=== PATIENT | female | born 1945 | race Caucasian/White ===

== ENCOUNTER 2019-04-30 04:01 | Inpatient (IN) | payer OTHER ==
[~2019-04-30] VITALS: Ht 152.4 cm; Wt 95.3 kg
[2019-04-30] MEDS ORDERED: VITAMIN C WITH500 MG PO (04:08)
[2019-04-30] MEDS ORDERED: BUSPIRONE HCL10 MG PO (04:09)
[2019-04-30] MEDS ORDERED: CALCIUM CITRAT1 EA20 PO (04:11)
[2019-04-30] MEDS ORDERED: DEPAKOTE SPRIN125 MG PO (04:12)
[2019-04-30] MEDS ORDERED: CARDIZEM SR 60M60 MG PO (04:14)
[2019-04-30] MEDS ORDERED: ARICEPT10 M1 PO (04:15)
[2019-04-30] MEDS ORDERED: ACID CONTROLLER20 MG PO (04:17)
[2019-04-30] MEDS ORDERED: FLONASE 0.05%50 MCG NARES (04:18)
[2019-04-30] MEDS ORDERED: FOSAMAX 70 MG T70 MG PO (04:19)
[2019-04-30] MEDS ORDERED: FUROSEMIDE 20 M20 MG PO (04:21)
[2019-04-30] MEDS ORDERED: GLYCOLAX119 GM PO (04:22)
[2019-04-30] MEDS ORDERED: IMODIUM A-D2 MG PO (04:26)
[2019-04-30] MEDS ORDERED: LEVO-T75 MCG PO (04:27)
[2019-04-30] MEDS ORDERED: MYRBETRIQ25 MG PO (04:30)
[2019-04-30] MEDS ORDERED: MONTELUKAST SODI4 M1 PO (04:31)
[2019-04-30] MEDS ORDERED: MULTIPLE VITAM1 EAC2 PO (04:32)
[2019-04-30] MEDS ORDERED: NYSTATIN 100,0015 G1 TP (04:35)
[2019-04-30] MEDS ORDERED: POTASSIUM99 M1 PO (04:37)
[2019-04-30] MEDS ORDERED: NOLVADEX20 MG PO (04:38)
[2019-04-30] MEDS ORDERED: RESTORIL15 M1 PO (04:39)
[2019-04-30] MEDS ORDERED: TOPROL XL25 MG PO (04:40)
[2019-04-30] MEDS ORDERED: TRAZODONE 150150 M1 PO (04:41)
[2019-04-30] MEDS ORDERED: TUBERCULIN INTRADERM (04:44)
[2019-04-30] MEDS ORDERED: ACETAMINOPHEN325 M1 PO (04:46)
[2019-04-30] MEDS ORDERED: DELTA D310 MCG PO (04:49)
[2019-04-30 05:49] VITALS: BP 115/70
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
[2019-04-30 08:25] VITALS: BP 155/82
[2019-04-30 12:38] VITALS: BP 110/82
--- NOTE | 2019-04-30 13:49 | NUR ---
Lying supine in bed without s/o distress. Alert and orientated to name and place but not to time. Frequently asking why she is here. Cooperative with assessment and meds. Wants name bracelet off, continually trying to chew/pull it off. Denies SI/HI. Uses walker with regular gait. Loud and demanding at times and uses profanity, tells staff to shut up but is quiet most of the time. Sits at table in day room. Breath sounds clear t/o, bilaterally equal. Color pink with brisk capillary refill and palpable peripheral pulses. +2-3 edema in lower extremities, +1 in hands. BP repeated d/t htn. Reg HR auscultated. Incontinent of yellow urine. Active bowel sounds over soft, rounded abdomen. Reddened/evans area under R breast, no excoriation. Participating in group at this time without s/o distress.
[2019-04-30 20:09] VITALS: BP 115/82
--- NOTE | 2019-04-30 23:31 | NUR ---
Pt. refused all medications that were scheduled for 2100 stating that she doesn't take any of those drugs. 2 separate attempts were made and patient refused x 2.
[2019-05-01 00:49] VITALS: BP 115/82
[2019-05-01 08:48] VITALS: BP 161/65
--- NOTE | 2019-05-01 12:31 | NUR ---
PT VERY ANGRY, AGITATED, LOUD, DEMANDING AND USING ALOT OF RACIAL SLURS. PT REFUSED SOME OF HER MORNING MEDICATIONS, AWARE. PT IS UP AND OUT AROUND THE UNIT, BUT NOT ACTING APPROPRIATE AT TIMES. PT TOLERATES MEALS. UP AROUND WITH WALKER.
[2019-05-01 18:03] VITALS: BP 161/74
[2019-05-01 20:00] VITALS: BP 116/57
--- NOTE | 2019-05-02 05:18 | NUR ---
ASSUME CARE OF PT AT 1900HRS. ASSESSMENTS CHARTED. FALL PRECAUTION IN PLACE. PT ABMULATES WITH A WALKER. PT IS INCT. PT REFUSES TO HAVE WRIST BANDS ON AND WRIST BANDS. NEW ID WRIST BAND APPLIED ON THE WALKER. PT REFUSED MOST NIGHT TIME MEDICATIONS. PT CAN BE BELLIGERENT. PT WAS UNHAPPY ABOUT NOT GETTING TRAZADONE AT HS. VSS AND NO S/S OF ACUTE DISTRESS. WILL CONTINUE TO MONITOR.
--- NOTE | 2019-05-02 08:50 | NUR ---
Sw complete chart review and pt lives at [facility] and has a guardian. Pt was beligerent over the weekend and has little insight into her behaviors.
[2019-05-02 11:48] VITALS: BP 140/72
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
--- NOTE | 2019-05-02 14:14 | NUR ---
1410 RESUMMED CARE FROM OVERNIGHT SHIFT THIS AM, PATIENT SITTING IN DAY ROOM COMPLAINING ABOUT NOT BEING ABLE TO WATCH THE NEWS. WE TOOK A VOTE FROM OTHER PATIENTS AND THEY DID NOT WANT TO WATCH THE NEWS. PATIENTS BOWEL SOUNDS PRESENT ABDOMEN SOFT AND ROUND LUNGS CLEAR. PATIENT HAS BEEN VERY DEMANDING TALKING BAD TO STAFF AND OTHER PATIENTS. I TOLD THE PATIENT IF SHE WANTS TO BE RESPECTED AND GET HER NEEDS MET SHE NEEDS TO BE A LITTLE NICER TO THE PAEOPLE WHO ARE TAKING CARE OF YOU. I SUGGESTED IF SHE IS UPSET BECAUSE CERTAIN TV SHOWS ARE NOT ON TO GO TO HER ROOM AND REST. I PUT THE PATIENT IN THE RECLINER DUE TO 4+ EDEMA IN FEET. PATIENT DENIES SI/HI/AH/VH AT PRESENT WILL CONTINUE TO MONITOR PATIENT FOR SAFETY AND BEHAVIORS.
[2019-05-02 16:37] LABS: ABSOLUTE NEUTROPHILS 2.5 thou/uL (1.4-8.2); BASOPHILS 1.3 % (0.0-2.0); EOSINOPHILS 2.8 % (0.0-3.0); HEMATOCRIT 24.2 % (37.0-47.0); HEMOGLOBIN 7.4 gm/dL (12.0-15.0); LYMPHOCYTES 34.9 % (24.0-44.0); MCH 22.9 pg (26.0-34.0); MCHC 30.6 g/dL (28.0-37.0); MCV 74.9 fL (80.0-100.0); MONOCYTES 10.1 % (1.0-8.0); PLATELET COUNT 383 thou/uL (150-400); POLYS 50.9 % (36.0-66.0); RBC 3.23 mil/uL (4.20-5.00); RDW 18.6 % (10.5-14.5); WBC 4.9 thou/uL (4.0-11.0)
[2019-05-02 17:00] LABS: ALBUMIN 3.1 g/dL (3.4-5.0); CALCIUM 8.6 mg/dL (8.5-10.1); CREATININE 0.8 mg/dL (0.6-1.0); POTASSIUM 4.1 mmol/L (3.5-5.1); TOTAL BILIRUBIN 0.1 mg/dL (<0.1-1.0); TOTAL PROTEIN 6.7 g/dL (6.4-8.2)
--- NOTE | 2019-05-02 17:29 | NUR ---
SW spoke with pt who said that she does not want to go back to [facility]; she insteads wants to reside at a facility that his close to her son Yuval. SW explained that decision has to be made by the P.A. guardian office. Pt did not understand what that meant, so SW explained her guardianship status. Pt also wants SW to ask the facility about her $50 monthly stipend and her iphone. SW team will continue to follow pt during her stay on this unit.
[2019-05-02 17:54] LABS: ANISOCYTOSIS 1+; HYPOCHROMASIA 1+
[2019-05-02 19:30] VITALS: BP 115/51
[2019-05-02 21:21] VITALS: BP 115/51
--- NOTE | 2019-05-02 21:48 | NUR ---
2134 RESUMMMED CARE FROM DAY SHIFT, PATIENT HAD AN EPISODE OF INCONTINENCE IN DAY ROOM. I TOOK PATIENT TO ROOM AND WASHED HER PRIVATE AND BUTTOCKS AREA, I TOLD PATIENT TO ASK FOR A BATH IN THE MORNING. PATIENTS AFFECT IS IRRITABLE SHE COMPLAINS ABOUT EVERYTHING AND STATES SHE HATES THIS PLACE. PATIENT ABDOMEN SOFT ROUND BOWEL SOUNDS PRESENT. PATIENT HAS 4+ EDEMA IN BOTH FEET AND LEGS ARE SWOLLEN. PATIENT IS UPSET ABOUT THE [facility] STATING THEY TAKE HER MONEY AND ONLY GAVE HER 2 SHOWERS SINCE SHE HAS BEEN WITH THEM. PATIENT DENIES SI/HI/AH/VH AT PRESENT. WILL CONTINUE TO MONITOR PATIENT FOR SAFETY AND BEHAVIORS.
--- NOTE | 2019-05-03 10:30 | NUR ---
Not participating in AM Group, dozing at intervals. Asking same questions over and over. Asks why she is here and if we have available the Temazepam and Trazodone. Wants her son to take her out of here to another facility.Declined to take AM Divalproex stating, "I am not Bipolar." Nothing about being Bipolar was mentioned to this patient. She was frequently asked if she needed to use the restroom and she declined. Mood irritable and affect constricted. She said she had a BM early this AM, though not seen by this nurse. Prior to going to breakfast she was given a sponge bath as her bed was saturated with urine. bed sanitized and clean linens applied.
--- NOTE | 2019-05-03 10:57 | NUR ---
SW received a call from Seema, pt's P.A. guardian, who asked for an update. SW provided that update and also explained to her pt does not want to return to [facility]. Seema told SW that while they will not abandon her, [facility] is also looking for placement for SW. She said she understands that pt may discharge before placement for her is found. She said that beginning Thursday she will be on vacation for a week. She gave her cell number of [phone], and said that during her absence hospital staff can contact [phone] which is the main number to the P.A. office. SW team will continue to follow pt during her stay on this unit.
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
[2019-05-03 20:35] VITALS: BP 130/80
--- NOTE | 2019-05-03 23:12 | NUR ---
PT SITTING IN DAY ROOM WATCHING TV AND PEER AND STAFF INTERACTIONS. BLUNTED AFFECT, [facility] CONTACT. WHEN PT TALKED WITH NURSE STATEMENTS WERE SHARP TONED AND DEMANDING. PT BLE EDEMA +4,HX LYMPHEDEMA. PT REPORTED RASH UNDER L BREAST AND WHILE IN DAY ROOM LIFTED HER SHIRT TO SHOW, NO RASH OBSERVED AND PT REDIRECTED NOT TO RAISE SHIRT IN DAY ROOM. PT INITIALLY RESISITVE TO MEDICATIONS BUT LATER COMPLIANT. PT ASKING TO CALL HER SON, WHEN PT TOLD SHE DOES NOT HAVE PHONE PRIVELAGES, SHE ASKED FOR NURSE TO CALL HER SON. PT STATED SHE WANTED HER SON TO GET ALL OF HER BELONGINGS AND MOVE HER TO A DIFFERENT AL FACILITY. PT HAD DIFFICULTY SWALLOWING POTASSIUM PILL, ONLY SWALLOWED HALF. PT REFUSED VS FROM TECH, BUT COMPLIANT WITH NURSE. PT INCONTINENT WHILE SITTING IN DAY ROOM. PT INITIALLY RESISTIVE TO ADL CARE AND REMOVAL OF WET CLOTHES. PT ASKING FOR RESTORIL AND TRAZADONE AT 2130. PT EDUCATED SHE WOULD NEED TO TAKE TRAZADONE 1 HOUR AFTER PRN RESTORIL AND SHE WOULD NEED TO BE COMPLIANT WITH ADL CARE AND CHANGING OF CLOTHES AND RESTING IN BED. PT INITIALLY RESISITVE BUT DID COMPLY. PT PROCEEDED TO TELL NURSE SHE TAKES 300MGS OF TRAZADONE FOR SLEEP NOT THE SCHEDULED 100. PT REFUSING TO WEAR HER ARM BANDS, STATING THEY ARE ON HER WALKER INSTEAD. BED ALARM ON.
[2019-05-04 12:44] VITALS: BP 118/57
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
[2019-05-04 13:14] VITALS: BP 118/57
--- NOTE | 2019-05-04 15:15 | NUR ---
PAULO called BLAKE Hoff, and the traffic safety administrator for [place] to arrange pt's discharge for Friday 05/05. No answer. PAULO left [facility]. PAULO met with pt and had a talk with her about being more pleasant can help with her experience in this unit, and people being nicer. Another pt told her how she initially had a bad attitude about being on this unit, and that she has changed her perspective and feels better. Pt seemed to take in what both PAULO and the other pt was saying. PAULO team will continue to monitor pt during her stay on this unit
--- NOTE | 2019-05-04 16:28 | EKG ---
[facility] [place] [address] ELECTROCARDIOGRAM REPORT Name: SERGIO CLARK LISANDRO [facility] M.R.#: [id number] Admission: 04/30/19 Attend Phys: Minnie Baker MD Discharge: Date of : 45 Report #: [id number] THIS REPORT FOR: cc: Peri Avitia,Peri Valera,South Desai MD ~ THIS REPORT FOR: //name// [facility] Test Date: 2019-05-04 Test Time: 10:36:31 Pat Name: SERGIO CLARK Department: Room: [facility] B Gender: F Nickel Plater: Luca العراقي : 1945 Requested By: Minnie Baker Order Number: [id number] MD: South Frankel Measurements Intervals [place] Rate: 62 P: 43 IN: 252 QRS: 35 QRSD: 165 T: 9 QT: 483 QTc: 491 Interpretive Statements Sinus rhythm Prolonged IN interval Probable left atrial enlargement Right bundle branch block Compared to ECG 12/20/1998 18:34:00 First degree AV block now present Right bundle-branch block now present Sinus tachycardia no longer present Electronically Signed On 05-04-2019 16:27:16 CDT by South Frankel [email or web address] <ELECTRONICALLY SIGNED> By: South Frankel MD 05/04/19 1627 1036 1036 South Frankel MD /EPI
--- NOTE | 2019-05-05 01:37 | NUR ---
Pt alert and oriented x3. Forgetful. Pt was rude and irritable while awake, calling the unit and dump and junk place. Pt cooperated with assessment. Pt incontinent of bladder. Pt wears briefs and voiced hating it. Pt tooks whole. Pt refused to wear briefs in bed. Pt also refused to having pads in bed. Pt education on incontinence and pads. Pt voiced that she does not sleep well with underwears and pants. Pt given the options to choose between briefs and pads. Pt agreed to having beds on the bed while fussing and cursing out. Pads currently in bed. Pt in bed and currently sleeping. Will continue to monitor.
--- NOTE | 2019-05-05 07:26 | NUR ---
Nutrition: Assessing for BMI > 40 (41 kg/m2) = extreme class III obesity. Admit w/ major neurocognitive disorder with behaviors. On a regular diet and eating 100% of almost all meals on unit. Will defer wt loss/diet ed as it is not deemed appropriate. Pt w/ dementia per EMR, has a guardian, and will be returning to facility where all meals likely prepared for pt. Planned discharge back to care center tomorrow per SW notes.
[2019-05-05 08:59] VITALS: BP 142/65
--- NOTE | 2019-05-05 10:30 | NUR ---
Very irritable, forgetful. Asks where her clothes from [place] are, who has her Social Security Check, where are her shoes and where is the tall white jug she believes she brought from [place] She sat in the group in the dayroom but did not participate. She denied pain, no A/V hallucinations or delusions. At times has selective forgetfulness. Aware today is . A friend Kimberly called, staff has called her friend with no return call. Continues to raise her voice at times, then at other times can speak in an appropriate volume and be pleasant.
--- NOTE | 2019-05-05 13:30 | NUR ---
PAULO contacted [facility] and left a message for Kavya and Padilla in regards to discharging pt tomorrow. PAULO contacted pt's P.A. ryan Stephenson who gave PAULO the names of Samantha and Armida as her points of contact. She also gave PAULO [place] phone number of [phone]. PAULO contacted Armida whos vm is full. PAULO then contacted [facility] and asked for Samantha; PAULO left a msg on her vm. PAULO team will continue to follow pt during her stay on this unit.
[2019-05-05 14:47] LABS: % SATURATION 2 % (20-39); IRON 10 ug/dL (50-170); TIBC 505 ug/dL (250-450)
[2019-05-05 15:17] LABS: TSH 5.409 uIU/mL (0.358-3.740)
[2019-05-05] MEDS ORDERED: GABAPENTIN 100100 MG PO (16:04)
[2019-05-05] MEDS ORDERED: TRAZODONE HCL100 MG PO (16:04)
[2019-05-05] MEDS ORDERED: K-DUR 20 MEQ T20 MEQ PO (16:06)
--- NOTE | 2019-05-05 18:14 | NUR ---
Staff got her another lunch which she wanted as well as another dinner which pleased her. Staff has called her friend Kimberly at least 4 more times with no return call. Her son was called with staff leaving a message to call her at 1810. Patient is declining to wear any type of compression device for her swollen legs and ankles. She is unable to wear wrapped leg kd wraps or the equivalent due to the policy of the unit-safety issue. Several times she adamantly has stated she has been here only a couple of nights when she has been here since 04/30/2019. She denies taking many of the meds she was given by this nurse when she was reassured she could only have which ever meds her doctors have ordered. No hitting/fighting behavior observed. No racial slurs observed. She continues to ask if we will be giving her the temazepam and trazodone tonight. She was informed a few times that she was ordered Temazepam at HS and if she was not asleep after one hour after receiving it she would be given the Trazodone. Note she has adamantly declined to elevate her feet/legs today continuing to sit in a chair most all of the day in the dayroom.
[2019-05-05 19:51] VITALS: BP 101/59
--- NOTE | 2019-05-06 04:00 | NUR ---
Assumed care of pt @ 1900. Pt irritable et argumentative this shift. Pt refused medication from two seperate nurses at . Pt asked for Temazepam PRN et then refused to take it. Pt then demanded it an hour et a half later et was told that she had already refused to take it. Ambulates with assist of walker with steady gait. Socialized with peers in dayroom unitl . VSWNL. Health assessment with no abnormalities noted at present time. Denies SI/HI at present time. Currently resting in bed with eyes closed. Will continue to monitor per protocol.
[2019-05-06 07:20] VITALS: BP 154/60
--- NOTE | 2019-05-06 14:32 | NUR ---
PAULO D/C Note PAULO contacted [facility] again and spoke to Alisa who apologized for not getting back to about discharging pt. She said pt is okay to return today. PAULO asked if 1600 is okay, and Alisa said it was. She gave the number of [phone] to give report and [phone] to fax orders to. PAULO arranged transportation for pt with [facility]. Trip #[id number].
--- NOTE | 2019-05-06 17:19 | NUR ---
Patient's [facility] facility DON was given report, papers were faxed by Melani Box to DON. Patient wanted to leave here. Patient was discharged at 1615 per w/c AMS accompanied to w/c van/ambulance with RN and straight truck driver, belongings and papers. She refused to sign papers presented to her, also refused to fill out survey. She soiled her green pants just before the straight truck driver arrived. Was sent out with a brief and blue PJ pants. Public Administrators office notified of transfer back to [facility] and requested we send her discharge summary to them. The faxing was done by Melani box for nurse Meliza ULLOA. P.A. Fax hiflxq=[phone]; phone number= [phone]. Note her assigned P.A. of [facility]=on vacation today for one week. Her substitute was notified.
== END 2019-05-06 17:09 | DRG 885 ==
LOC: SBH
PROVIDERS: Hospitalist; Psychiatry & Neurology Psychiatry; ADMIT Psychiatry & Neurology Psychiatry
DX: F31.9 Bipolar disorder, unspecified (principal); F03.91 Unspecified dementia, unspecified severity, with behavioral disturbance; G47.00 Insomnia, unspecified; I48.91 Unspecified atrial fibrillation; I10 Essential (primary) hypertension; E03.9 Hypothyroidism, unspecified; R45.850 Homicidal ideations; Z88.6 Allergy status to analgesic agent; Z88.8 Allergy status to other drugs, medicaments and biological substances; Z79.899 Other long term (current) drug therapy; Z85.3 Personal history of malignant neoplasm of breast; Z95.0 Presence of cardiac pacemaker; Z23 Encounter for immunization
CPT/HCPCS: 10880

== ENCOUNTER 2019-07-19 11:56 | Inpatient (IN) | payer OTHER | END 2019-08-01 13:10 | DRG 885 | LOC: ER 11:56 → EROBS 14:31 → SBH 15:04 | PROVIDERS: ADMIT Psychiatry & Neurology Psychiatry | DX: F31.9 Bipolar disorder, unspecified (principal); F01.51 Vascular dementia, unspecified severity, with behavioral disturbance; I48.91 Unspecified atrial fibrillation; I10 Essential (primary) hypertension; F41.9 Anxiety disorder, unspecified; D64.9 Anemia, unspecified; E03.9 Hypothyroidism, unspecified; Z79.899 Other long term (current) drug therapy; Z85.3 Personal history of malignant neoplasm of breast; Z88.6 Allergy status to analgesic agent; Z88.5 Allergy status to narcotic agent; Z88.8 Allergy status to other drugs, medicaments and biological substances; Z95.0 Presence of cardiac pacemaker; Z03.818 Encounter for observation for suspected exposure to other biological agents ruled out ==